=== PATIENT | female | born 1980 | race Hispanic/Latino ===

== ENCOUNTER 2022-05-03 16:45 | Emergency (ER) | payer OTHER ==
[~2022-05-03] VITALS: Ht 172.7 cm; Wt 81.6 kg
[2022-05-03] MEDS ORDERED: METH4TAB3 PO (19:24)
[2022-05-03] MEDS ORDERED: OSEL75 PO (19:24)
[2022-05-03] MEDS ORDERED: SOLU-MEDROL 40MG VIAL IJ ONE (19:30)
[2022-05-03 19:42] VITALS: BP 147/88
== END 2022-05-03 19:48 | disposition home or self-care (01) ==
LOC: EDH 16:45
DX: G44.209 Tension-type headache, unspecified, not intractable (principal); J11.1 Influenza due to unidentified influenza virus with other respiratory manifestations; M94.0 Chondrocostal junction syndrome [Tietze]; Z20.822 Contact with and (suspected) exposure to COVID-19; Z79.52 Long term (current) use of systemic steroids
CPT/HCPCS: 99283; 96374; 87635; 87804 ×2; 81025; C9803; J2920